=== PATIENT | male | born 1985 | race African-American/Black ===

== ENCOUNTER 2017-04-04 06:55 | Emergency (ER) | payer MEDICAID, OTHER ==
[~2017-04-04] VITALS: Ht 170.2 cm; Wt 108.9 kg
--- NOTE | 2017-04-04 07:10 | NUR ---
BIB [facility] STATING "BEEN OFF OF PSYCH MEDS FOR ONE WEEK AND AM HEARING VOICES; DONT FEEL SAFE". PATIENT A/OX 4. BREATHING EVEN AND UNLABORED. PATIENT IS CALM AND COOPERATIVE. NO SOB. VITALS STABLE. SAFETY AND COMFORT MEASURES IN PLACE. AWAITING MD ORDERS.
--- NOTE | 2017-04-04 07:55 | NUR ---
AT BEDSIDE FOR EVAL.
[2017-04-04 08:19] LABS: BASOPHILS # (AUTO) 0.1 /CMM (0.0-0.2); BASOPHILS % (AUTO) 1.3 % (0.0-2.0); EOSINOPHILS % (AUTO) 0.5 % (0.0-6.0); HEMATOCRIT 40 % (39-51); HEMOGLOBIN 13.4 g/dL (13.5-17.5); LYMPHOCYTES # (AUTO) 1.2 /CMM (0.8-4.8); LYMPHOCYTES % (AUTO) 20.2 % (20.0-44.0); MEAN CORPUSCULAR HEMOGLOBIN 27 PG (26.0-33.0); MEAN CORPUSCULAR HGB CONC 33 g/dl (31.0-36.0); MEAN CORPUSCULAR VOLUME 83 fL (80-96); MONOCYTES # (AUTO) 0.2 /CMM (0.1-1.30); MONOCYTES % (AUTO) 3.8 % (2.0-12.0); NEUTROPHILS # (AUTO) 4.5 /CMM (1.8-8.9); NEUTROPHILS % (AUTO) 74.2 % (43.0-81.0); PLATELET COUNT (AUTO) 212 /CMM (150-450); RDW COEFFICIENT OF VARIATION 15.2 (11.5-15.0); RED BLOOD CELL COUNT(AUTO) 4.88 MIL/uL (4.5-6.0)
[2017-04-04 08:30] LABS: CALCIUM, SERUM 9.1 mg/dL (8.5-10.1); CARBON DIOXIDE 26 mmol/L (21-32); CHLORIDE 106 mmol/L (98-107); CREATININE 0.8 mg/dL (0.6-1.3); GLUCOSE 102 mg/dL (74-106); POTASSIUM 3.7 mmol/L (3.5-5.1); SODIUM SERUM 139 mmol/L (136-145); UREA NITROGEN, BLOOD 7 mg/dL (7-18)
[2017-04-04 08:39] LABS: ALANINE AMINOTRANSFERASE 27 U/L (12-78); ALBUMIN 3.5 g/dL (3.4-5.0); ALKALINE PHOSPHATASE 78 U/L (46-116); ASPARTATE AMINOTRANSFERASE 16 U/L (15-37); BILIRUBIN,DIRECT 0.1 mg/dL (0.0-0.2); BILIRUBIN,TOTAL 0.5 mg/dL (0.2-1.0); TOTAL PROTEIN, SERUM 6.9 g/dL (6.4-8.2)
[2017-04-04 08:41] LABS: ALCOHOL, BLOOD < 3 mg/dL (0-0)
[2017-04-04 08:59] LABS: APPEARANCE,URINE CLEAR (CLEAR); BILIRUBIN,URINE NEGATIVE (NEGATIVE); BLOOD, URINE NEGATIVE Ery/uL (NEGATIVE); COLOR,URINE YELLOW (YELLOW); KETONES,URINE NEGATIVE (NEGATIVE); LEUKOCYTE ESTERASE ,URINE NEGATIVE (NEGATIVE); NITRITE, URINE NEGATIVE (NEGATIVE); PROTEIN,URINE NEGATIVE (NEGATIVE); UGLUCOSE NEGATIVE (NEGATIVE)
--- NOTE | 2017-04-04 09:00 | NUR ---
JULIEN THOMAS CALLED FOR EVAL
[2017-04-04 09:23] LABS: BACTERIA,URINE Rare /HPF (None Seen); RBC,URINE 0-2 /HPF (0-2); SQUAMOUS EPITHELIAL CELL,UR Few /HPF (None Seen)
--- NOTE | 2017-04-04 11:09 | NUR ---
PASTRY SOUS CHEF, JULIEN AT BEDSIDE FOR EVAL.
--- NOTE | 2017-04-04 13:26 | NUR ---
CALLED [facility] FOR [facility]SPORT ETA OF 1395 WAS GIVEN. TRIP#[id number]
--- NOTE | 2017-04-04 13:55 | NUR ---
REPORT GIVEN TO NEGAR ROMO FOR [facility] UPON TRANSFER.
[2017-04-04 14:30] VITALS: BP 128/71
--- NOTE | 2017-04-04 14:30 | NUR ---
REPORT GIVEN TO EMT AT BEDSIDE. PATIENT TRANSFERRED TO [facility]BULANCE.
== END 2017-04-04 14:52 ==
LOC: ER 06:56
DX: F32.9 Major depressive disorder, single episode, unspecified (principal); R45.851 Suicidal ideations; F20.9 Schizophrenia, unspecified; I10 Essential (primary) hypertension; F12.10 Cannabis abuse, uncomplicated; F17.200 Nicotine dependence, unspecified, uncomplicated; Z59.0 Homelessness
CPT/HCPCS: 36415; 80048-TC; 80076-TC; 80305; 81000-TC; 85025-TC; A4606; G0480; Z7610